=== PATIENT | female | born 1970 | race Caucasian/White ===

== ENCOUNTER 2024-11-23 18:45 | Emergency (ER) | payer OTHER ==
[~2024-11-23] VITALS: Ht 154.9 cm; Wt 72.6 kg
[2024-11-23 19:30] VITALS: TEMP 97.7
[2024-11-23] MEDS: TRAMADOL HCL 50 MG TAB PO ONE (21:13)
[2024-11-23] MEDS: IBUPROFEN 600 MG TAB PO STA (21:14)
[2024-11-23] MEDS: ONDANSETRON HCL 4 MG ORAL DISINTEGRATING TAB PO ONE (21:14)
[2024-11-23 22:00] VITALS: PULSE 59; RESP 17
[2024-11-23] MEDS ORDERED: ULTRAM 50MG50 MG PO (22:21)
[2024-11-23 22:51] VITALS: BP 115/68; PULSE 66; RESP 17; TEMP 97.7; O2SAT 100
== END 2024-11-23 22:40 | disposition home or self-care (01) ==
LOC: ER 21:08
DX: S52.514A Nondisplaced fracture of right radial styloid process, initial encounter for closed fracture (principal); V43.52XA Car driver injured in collision with other type car in traffic accident, initial encounter; Y92.488 Other paved roadways as the place of occurrence of the external cause; I10 Essential (primary) hypertension
CPT/HCPCS: 29125; 73090; 73110; 99284; Q0162